=== PATIENT | male | born 2000 | race African-American/Black ===

== ENCOUNTER 2024-04-01 06:16 | Emergency (ER) | payer OTHER ==
[2024-04-01 06:23] VITALS: BP 136/70; PULSE 99; RESP 18; TEMP 97.7; BMI 19.5
[2024-04-01] MEDS ORDERED: CEPHALEXIN MONOHYDRATE 500 MG CAPSULE (UD) ONE (08:35)
[2024-04-01] MEDS ORDERED: DIPHTH,PERTUSS(ACELL),TET 0.5 ML DISP.SYRIN IM ONE (08:35)
[2024-04-01] MEDS: DIPHTH,PERTUSS(ACELL),TET 0.5 ML DISP.SYRIN IM ONE (08:39)
[2024-04-01] MEDS: CEPHALEXIN MONOHYDRATE 500 MG CAPSULE (UD) PO ONE (08:41)
[2024-04-01] MEDS ORDERED: ACETAMINOPHEN 500 MG TABLET (FP) ONE (08:42)
[2024-04-01] MEDS: ACETAMINOPHEN 500 MG TABLET (FP) PO ONE (08:44)
== END 2024-04-01 09:54 | disposition home or self-care (01) ==
LOC: JER 06:16
PROC: 3E0234Z Introduction of Serum, Toxoid and Vaccine into Muscle, Percutaneous Approach (ICD-10-PCS; principal; 2024-04-01)
DX: S41.111A Laceration without foreign body of right upper arm, initial encounter (principal); S80.01XA Contusion of right knee, initial encounter; S80.02XA Contusion of left knee, initial encounter; Y04.8XXA Assault by other bodily force, initial encounter; Z23 Encounter for immunization
CPT/HCPCS: 73060-TC-RT-FY; 90471; 90715; 99284-25